=== PATIENT | female | born 1985 | race Caucasian/White ===

== ENCOUNTER 2019-03-05 11:00 | Emergency (ER) | payer SELFPAY ==
[~2019-03-05] VITALS: Ht 165.1 cm; Wt 50.8 kg
[~2019-03-05 11:00] MED LIST: CYCL10 PO; GUAI600T33 PO; HYDACE5 PO; IBUP400 PO; IBUP800 PO; OXYACE5T PO; PHENA200 PO; PROM25 PO; SULTRIDS PO; Verotin-Gr Cap1 EACH PO
[2019-03-05] MEDS ORDERED: Monodox100 MG PO (11:48)
== END 2019-03-05 11:55 | disposition home or self-care (01) ==
LOC: ER 11:00
DX: K04.7 Periapical abscess without sinus (principal); F17.200 Nicotine dependence, unspecified, uncomplicated; Z88.0 Allergy status to penicillin
CPT/HCPCS: 99282

== ENCOUNTER 2021-02-18 15:22 | Emergency (ER) | payer OTHER ==
[~2021-02-18] VITALS: Ht 162.6 cm; Wt 59.0 kg
[~2021-02-18 15:22] MED LIST changes: +Monodox100 MG PO
[2021-02-18] MEDS ORDERED: Cleocin HCl300 MG PO (15:41)
[2021-02-18] MEDS ORDERED: Ultram50 MG PO (15:42)
== END 2021-02-18 15:47 | disposition home or self-care (01) ==
LOC: ER 15:22
DX: K04.7 Periapical abscess without sinus (principal); F17.200 Nicotine dependence, unspecified, uncomplicated; Z88.0 Allergy status to penicillin
CPT/HCPCS: 99282